=== PATIENT | female | born 1945 | race Caucasian/White ===

== ENCOUNTER → 2016-10-13 | Outpatient (CLI) | payer MEDICARE, OTHER ==
[~2016-10-13] MED LIST: ALLOPURINOL100 MG PO; ASPIRIN E.C. 8181 MG PO; AVALIDE PO; CALCIUM1 CAP PO; FISH OIL CONCEN1 SGL PO; KEFLEX500 MG PO; LIPITOR80 MG PO; LORTAB 5/500 501 TAB PO; TENORMIN25 MG PO
== END ==
LOC: MC.RAD 14:10
DX: Z12.31 Encounter for screening mammogram for malignant neoplasm of breast (principal)

== ENCOUNTER → 2017-12-01 | Outpatient (CLI) | payer MEDICARE, OTHER | LOC: MC.RAD 10:20 | DX: Z12.31 Encounter for screening mammogram for malignant neoplasm of breast (principal) ==

== ENCOUNTER → 2017-12-06 | Outpatient (CLI) | payer MEDICARE, OTHER | LOC: ZCOL.LAB 15:51 | DX: Z01.812 Encounter for preprocedural laboratory examination (principal); Z86.14 Personal history of Methicillin resistant Staphylococcus aureus infection ==

== ENCOUNTER → 2018-02-02 | Outpatient (CLI) | payer MEDICARE, OTHER | LOC: ZCOL.LAB 14:23 | DX: Z01.812 Encounter for preprocedural laboratory examination (principal); Z86.14 Personal history of Methicillin resistant Staphylococcus aureus infection ==

== ENCOUNTER → 2018-02-02 | Outpatient (CLI) | payer MEDICARE, OTHER ==
[2018-02-02 12:54] LABS: PROTHROMBIN TIME 11.5 SECONDS (9.7-12.8)
[2018-02-02 13:26] LABS: HIV 1/2 Antibodies Non-Reactive; HIV-1p24 Antigen Non-Reactive
== END ==
LOC: COL.LAB 11:52
PROVIDERS: Orthopaedic Surgery
DX: Z01.812 Encounter for preprocedural laboratory examination (principal); M17.11 Unilateral primary osteoarthritis, right knee; Z79.01 Long term (current) use of anticoagulants

== ENCOUNTER 2018-04-30 12:52 | Outpatient (RCR) | payer MEDICARE, OTHER | END 2018-07-29 | disposition still patient (30) | LOC: WSST | DX: J38.3 Other diseases of vocal cords (principal) ==

== ENCOUNTER → 2019-03-25 | Outpatient (CLI) | payer MEDICARE, OTHER | LOC: MC.RAD 12:49 | DX: Z12.31 Encounter for screening mammogram for malignant neoplasm of breast (principal) ==

== ENCOUNTER → 2020-04-02 | Outpatient (CLI) | payer MEDICARE, OTHER | LOC: MC.RAD 11:45 | DX: Z12.31 Encounter for screening mammogram for malignant neoplasm of breast (principal) ==

== ENCOUNTER → 2020-10-13 | Outpatient (CLI) | payer MEDICARE, OTHER | LOC: COL.RAD 13:33 | DX: N95.0 Postmenopausal bleeding (principal) ==

== ENCOUNTER → 2021-05-17 | Outpatient (CLI) | payer MEDICARE, OTHER | LOC: MC.RAD 05-03 11:15 | DX: Z12.31 Encounter for screening mammogram for malignant neoplasm of breast (principal) ==

== ENCOUNTER 2021-10-27 06:40 | Outpatient (CLI) | payer MEDICARE, OTHER ==
[~2021-10-27] VITALS: Ht 167.6 cm; Wt 95.3 kg
[2021-10-27] VITALS (7 sets, daily range): BP systolic 127–250; BP diastolic 63–76; PULSE 60–63; TEMP 98
[2021-10-27] MEDS ORDERED: COREG 6.256.25 MG/TA PO (06:51)
[2021-10-27] MEDS ORDERED: ZYLOPRIM 300MG300 MG PO (06:51)
[2021-10-27] MEDS ORDERED: CYMBALTA 60MG60 MG PO (06:52)
[2021-10-27] MEDS ORDERED: AVALIDE 12.5 MG1 TAB PO (06:52)
[2021-10-27] MEDS ORDERED: MULTI VITAMINS1 TAB PO (06:53)
[2021-10-27] MEDS ORDERED: LIPITOR20 MG PO (06:53)
[2021-10-27] MEDS ORDERED: MASON NATURAL1200 MG PO (06:54)
[2021-10-27] MEDS ORDERED: CALCIUM 600MG+D1 TAB PO (06:54)
--- NOTE | 2021-10-27 09:32 | NUR ---
Discharge instructions given to pt.pt verbalizes understanding.Pt escorted out via wheelchair by this nurse.
== END 2021-10-27 09:42 ==
LOC: COL.RAD 06:40
DX: M47.816 Spondylosis without myelopathy or radiculopathy, lumbar region (principal); M48.062 Spinal stenosis, lumbar region with neurogenic claudication
CPT/HCPCS: Q9965

== ENCOUNTER → 2023-05-16 | Outpatient (CLI) | payer MEDICARE, OTHER ==
[~2023-05-16] MED LIST changes: +AVALIDE 12.5 MG1 TAB PO; +CALCIUM 600MG+D1 TAB PO; +COREG 6.256.25 MG/TA PO; +CYMBALTA 60MG60 MG PO; +LIPITOR20 MG PO; +MASON NATURAL1200 MG PO; +MULTI VITAMINS1 TAB PO; +ZYLOPRIM 300MG300 MG PO
== END ==
LOC: MC.RAD 13:00
DX: Z12.31 Encounter for screening mammogram for malignant neoplasm of breast (principal)